=== PATIENT | female | born 1945 | race Two or more races ===

== ENCOUNTER 2022-05-19 12:55 | Inpatient (IN) | payer OTHER, MEDICAID ==
[2022-05-19] VITALS (28 sets, daily range): BP systolic -7–145; BP diastolic -17–86
[~2022-05-19] VITALS: Ht 154.9 cm; Wt 60.8 kg
[2022-05-19] MEDS ORDERED: NICARDIPINE 50 MG in SODIUM CHLORIDE 0.9% 230 ML IV SCH (13:45)
[2022-05-19] MEDS ORDERED: NICARDIPINE 40 MG/200 ML PREMIX 200 ML IV PRN (14:00)
[2022-05-19 14:11] LABS: CHLORIDE 104 mEq/L (98-107)
[2022-05-19 14:23] LABS: CREATINE KINASE 123 IU/L (26-192); ETHANOL BLOOD < 10 mg/dL
[2022-05-19 14:52] LABS: CLARITY URINE CLEAR (CLEAR); COLOR URINE YELLOW (YELLOW); KETONES URINE NEGATIVE (NEGATIVE); LEUKOCYTE ESTERASE URINE NEGATIVE (NEGATIVE); NITRITE URINE NEGATIVE (NEGATIVE); OCCULT BLOOD URINE 2+ (NEGATIVE); PH URINE 7.5 (4.5-8.0); PROTEIN URINE NEGATIVE (NEGATIVE); SPECIFIC GRAVITY URINE 1.021 (1.005-1.030); UROBILINOGEN URINE 0.2 E.U./dL (0.2-1.0)
[2022-05-19] MEDS ORDERED: SODIUM CHLORIDE 0.9% 1,000 ML IV ONE (15:00)
[2022-05-19 15:27] LABS: *AMPHETAMINES SCREEN URINE NEGATIVE (NEGATIVE); *BARBITURATES SCREEN URINE NEGATIVE (NEGATIVE); *BENZODIAZEPINES SCREEN URINE NEGATIVE (NEGATIVE); *COCAINE SCREEN URINE NEGATIVE (NEGATIVE); CANNABINOID URINE SCREEN NEGATIVE (NEGATIVE); OPIATES URINE SCREEN NEGATIVE (NEGATIVE)
[2022-05-19] MEDS ORDERED: NICARDIPINE 100 MG in SODIUM CHLORIDE 0.9% 60 ML IV PRN (15:30)
[2022-05-19] MEDS ORDERED: DEXT 5%/LACTATED RINGERS 1,000 ML IV SCH (15:30)
[2022-05-19 15:41] LABS: METHADONE URINE SCREEN NEGATIVE (NEGATIVE); PHENCYCLIDINE URINE SCREEN NEGATIVE (NEGATIVE)
[2022-05-19 15:42] LABS: HEMATOCRIT. 37.4 % (36.0-48.0); HEMOGLOBIN. 12.6 g/dL (12.0-16.0); MEAN CORPUSCULAR HEMOGLOBIN 32.7 pg (28.0-32.0); MEAN CORPUSCULAR VOLUME 97.2 fL (81.0-99.0); MEAN PLATELET VOLUME 7.6 fl (7.4-10.4); PLATELET 252 x1000/uL (130-400); RED BLOOD CELL COUNT 3.85 mill/uL (4.2-5.4); RED CELL DISTRIBUTION WIDTH 13.5 % (11.6-14.6)
[2022-05-19 15:54] LABS: INR 1.4; PROTHROMBIN TIME 14.3 sec (9.6-11.0)
[2022-05-19 16:48] LABS: PLATELET ESTIMATE NORMAL
[2022-05-19] MEDS ORDERED: LEVETIRACETAM 500MG PREMIX 100 ML IV SCH (17:00)
[2022-05-19] MEDS ORDERED: MORPHINE SULFATE 10 MG/ML CPJ IV NR ×2 (17:05→17:15)
[2022-05-19] MEDS ORDERED: IPRATROPIUM/ALBUTEROL 0.5-3(2.5)MG/3ML NEB NEB PRN (18:15)
[2022-05-19] MEDS ORDERED: NITROGLYCERIN 0.4MG TABLET SL SL PRN (18:15)
[2022-05-19] MEDS ORDERED: ONDANSETRON HCL 4MG/2ML INJ IV PRN (18:15)
[2022-05-19] MEDS ORDERED: ACETAMINOPHEN 650MG SUPP PR PRN (18:15)
[2022-05-19] MEDS: DEXT 5%/LACTATED RINGERS 1,000 ML IV SCH (18:23)
[2022-05-19] MEDS: DEXAMETHASONE 4MG/ML 1ML VIAL IV SCH (18:23)
[2022-05-19 22:16] LABS: T4 FREE 1.4 ng/dL (0.76-1.46)
[2022-05-19 22:32] LABS: FOLIC ACID (FOLATE) SERUM >20 ng/mL ng/mL (>5.38); VITAMIN B12 SERUM 378 pg/mL (211-911)
[2022-05-20] VITALS (97 sets, daily range): BP systolic -5–164; BP diastolic -9–86
[2022-05-20] MEDS: DEXAMETHASONE 4MG/ML 1ML VIAL IV SCH ×4 (00:24→18:55)
[2022-05-20 05:53] LABS: HEMATOCRIT. 39.8 % (36.0-48.0); HEMOGLOBIN. 13.6 g/dL (12.0-16.0); MEAN CORPUSCULAR HEMOGLOBIN 33.7 pg (28.0-32.0); MEAN CORPUSCULAR VOLUME 98.7 fL (81.0-99.0); MEAN PLATELET VOLUME 8.4 fl (7.4-10.4); PLATELET 246 x1000/uL (130-400); RED BLOOD CELL COUNT 4.03 mill/uL (4.2-5.4); RED CELL DISTRIBUTION WIDTH 13.9 % (11.6-14.6)
[2022-05-20 05:56] LABS: CHLORIDE 109 mEq/L (98-107)
[2022-05-20 06:05] LABS: PHOSPHORUS 1.5 mg/dL (2.5-4.9)
[2022-05-20] MEDS: DEXT 5%/LACTATED RINGERS 1,000 ML IV SCH ×2 (06:40→17:05)
[2022-05-20] MEDS: LEVETIRACETAM 500MG PREMIX 100 ML IV SCH ×2 (08:21→21:17)
[2022-05-20] MEDS: PANTOPRAZOLE SODIUM 40 MG/VIAL IV SCH (08:22)
[2022-05-20] MEDS: NICARDIPINE 100 MG in SODIUM CHLORIDE 0.9% 60 ML IV PRN (08:40)
[2022-05-20] MEDS ORDERED: MAGNESIUM 4 G PREMIX 100 ML IV NR (09:00)
[2022-05-20] MEDS: KCL 20MEQ/100ML PREMIX 100 ML IV SCH ×2 (11:00→13:04)
[2022-05-20 12:59] LABS: PLATELET ESTIMATE NORMAL
[2022-05-21] VITALS (73 sets, daily range): BP systolic -5–153; BP diastolic -5–96
[2022-05-21] MEDS: DEXT 5%/LACTATED RINGERS 1,000 ML IV SCH ×3 (00:16→17:22)
[2022-05-21 06:16] LABS: HEMATOCRIT. 35.7 % (36.0-48.0); MEAN CORPUSCULAR HEMOGLOBIN 33.3 pg (28.0-32.0); MEAN PLATELET VOLUME 8.3 fl (7.4-10.4); PLATELET 219 x1000/uL (130-400); RED BLOOD CELL COUNT 3.61 mill/uL (4.2-5.4)
[2022-05-21 06:47] LABS: CHLORIDE 113 mEq/L (98-107)
[2022-05-21 08:12] LABS: PLATELET ESTIMATE NORMAL
[2022-05-21] MEDS: PANTOPRAZOLE SODIUM 40 MG/VIAL IV SCH (08:29)
[2022-05-21] MEDS: LEVETIRACETAM 500MG PREMIX 100 ML IV SCH ×2 (08:29→21:30)
[2022-05-21] MEDS ORDERED: POTASSIUM PHOS,M-BASIC-D-BASIC 20 MMOL in DEXT 5% WATER 243.3333 ML IV NR (10:00)
[2022-05-22] VITALS (81 sets, daily range): BP systolic -3–163; BP diastolic -3–102
[2022-05-22] MEDS: DEXT 5%/LACTATED RINGERS 1,000 ML IV SCH ×3 (01:21→17:39)
[2022-05-22 05:47] LABS: HEMATOCRIT. 32.1 % (36.0-48.0); HEMOGLOBIN. 10.9 g/dL (12.0-16.0); MEAN CORPUSCULAR VOLUME 96.6 fL (81.0-99.0); MEAN PLATELET VOLUME 8.6 fl (7.4-10.4); PLATELET 205 x1000/uL (130-400); RED BLOOD CELL COUNT 3.32 mill/uL (4.2-5.4); RED CELL DISTRIBUTION WIDTH 14.3 % (11.6-14.6)
[2022-05-22 06:05] LABS: CHLORIDE 108 mEq/L (98-107)
[2022-05-22 06:16] LABS: PHOSPHORUS 2.8 mg/dL (2.5-4.9)
[2022-05-22 07:08] LABS: PLATELET ESTIMATE NORMAL
[2022-05-22] MEDS: LEVETIRACETAM 500MG PREMIX 100 ML IV SCH ×2 (08:00→20:52)
[2022-05-22] MEDS: PANTOPRAZOLE SODIUM 40 MG/VIAL IV SCH (08:00)
[2022-05-22] MEDS: NICARDIPINE 100 MG in SODIUM CHLORIDE 0.9% 60 ML IV PRN (17:46)
[2022-05-23] VITALS (92 sets, daily range): BP systolic -5–147; BP diastolic -5–80
[2022-05-23] MEDS: DEXT 5%/LACTATED RINGERS 1,000 ML IV SCH ×3 (02:16→17:59)
[2022-05-23 05:23] LABS: HEMATOCRIT. 38.1 % (36.0-48.0); HEMOGLOBIN. 13.1 g/dL (12.0-16.0); MEAN CORPUSCULAR HEMOGLOBIN 33.2 pg (28.0-32.0); MEAN CORPUSCULAR VOLUME 96.5 fL (81.0-99.0); MEAN PLATELET VOLUME 8.5 fl (7.4-10.4); PLATELET 245 x1000/uL (130-400); RED BLOOD CELL COUNT 3.95 mill/uL (4.2-5.4); RED CELL DISTRIBUTION WIDTH 14.1 % (11.6-14.6)
[2022-05-23 05:31] LABS: CHLORIDE 104 mEq/L (98-107)
[2022-05-23 05:39] LABS: PHOSPHORUS 2.5 mg/dL (2.5-4.9)
[2022-05-23] MEDS: LEVETIRACETAM 500MG PREMIX 100 ML IV SCH ×2 (08:42→21:18)
[2022-05-23] MEDS: PANTOPRAZOLE SODIUM 40 MG/VIAL IV SCH (08:42)
[2022-05-23] MEDS ORDERED: KCL 20MEQ/100ML PREMIX 100 ML IV NR (09:30)
[2022-05-23] MEDS ORDERED: MAGNESIUM 2 G PREMIX 50 ML IV NR (09:30)
[2022-05-23 10:29] LABS: PLATELET ESTIMATE NORMAL
[2022-05-24] VITALS (96 sets, daily range): BP systolic 0–151; BP diastolic 0–84
[2022-05-24] MEDS: DEXT 5%/LACTATED RINGERS 1,000 ML IV SCH ×3 (04:17→18:52)
[2022-05-24 05:30] LABS: BASOPHILS % 0.6 % (0.0-2.0); EOSINOPHILS % 0.4 % (0.0-5.0); HEMATOCRIT. 39.7 % (36.0-48.0); HEMOGLOBIN. 13.7 g/dL (12.0-16.0); LYMPHOCYTES % 11.6 % (20.0-50.0); MEAN CORPUSCULAR HEMOGLOBIN 33.8 pg (28.0-32.0); MEAN CORPUSCULAR VOLUME 97.6 fL (81.0-99.0); MEAN PLATELET VOLUME 8.7 fl (7.4-10.4); MONOCYTES % 8.9 % (2.0-8.0); NEUTROPHILS % 78.5 % (40.0-76.0); PLATELET 249 x1000/uL (130-400); RED BLOOD CELL COUNT 4.07 mill/uL (4.2-5.4); RED CELL DISTRIBUTION WIDTH 14.1 % (11.6-14.6)
[2022-05-24 05:32] LABS: CHLORIDE 107 mEq/L (98-107)
[2022-05-24] MEDS: AMLODIPINE 10MG TABLET PO SCH (09:05)
[2022-05-24] MEDS: LOSARTAN POTASSIUM 100 MG TABLET PO SCH (09:05)
[2022-05-24] MEDS: NICARDIPINE 100 MG in SODIUM CHLORIDE 0.9% 60 ML IV PRN (09:05)
[2022-05-24] MEDS: LEVETIRACETAM 500MG PREMIX 100 ML IV SCH ×2 (09:05→22:06)
[2022-05-24] MEDS: PANTOPRAZOLE SODIUM 40 MG/VIAL IV SCH (09:05)
[2022-05-25] VITALS (84 sets, daily range): BP systolic -2–149; BP diastolic -2–83
[2022-05-25] MEDS: DEXT 5%/LACTATED RINGERS 1,000 ML IV SCH ×2 (02:00→21:23)
[2022-05-25 05:44] LABS: BASOPHILS % 0.2 % (0.0-2.0); LYMPHOCYTES % 12.9 % (20.0-50.0); MEAN CORPUSCULAR HEMOGLOBIN 33.5 pg (28.0-32.0); MEAN CORPUSCULAR VOLUME 98.1 fL (81.0-99.0); MONOCYTES % 11.4 % (2.0-8.0); NEUTROPHILS % 73.5 % (40.0-76.0); PLATELET 236 x1000/uL (130-400); RED BLOOD CELL COUNT 3.87 mill/uL (4.2-5.4); RED CELL DISTRIBUTION WIDTH 13.9 % (11.6-14.6)
[2022-05-25 06:01] LABS: PHOSPHORUS 3.5 mg/dL (2.5-4.9)
[2022-05-25] MEDS: LEVETIRACETAM 500MG PREMIX 100 ML IV SCH ×2 (08:15→21:12)
[2022-05-25] MEDS: PANTOPRAZOLE SODIUM 40 MG/VIAL IV SCH (08:15)
[2022-05-25] MEDS: AMLODIPINE 10MG TABLET PO SCH (08:16)
[2022-05-25] MEDS: LOSARTAN POTASSIUM 100 MG TABLET PO SCH (08:16)
[2022-05-26] VITALS (64 sets, daily range): BP systolic -1–150; BP diastolic -4–80
[2022-05-26 04:12] LABS: BASOPHILS % 0.1 % (0.0-2.0); HEMATOCRIT. 36.1 % (36.0-48.0); HEMOGLOBIN. 12.4 g/dL (12.0-16.0); LYMPHOCYTES % 9.5 % (20.0-50.0); MEAN CORPUSCULAR HEMOGLOBIN 33.7 pg (28.0-32.0); MEAN CORPUSCULAR VOLUME 98.2 fL (81.0-99.0); MEAN PLATELET VOLUME 7.6 fl (7.4-10.4); MONOCYTES % 12.6 % (2.0-8.0); NEUTROPHILS % 74.8 % (40.0-76.0); PLATELET 214 x1000/uL (130-400); RED BLOOD CELL COUNT 3.68 mill/uL (4.2-5.4); RED CELL DISTRIBUTION WIDTH 13.8 % (11.6-14.6)
[2022-05-26 04:48] LABS: PHOSPHORUS 3.2 mg/dL (2.5-4.9)
[2022-05-26] MEDS: AMLODIPINE 10MG TABLET PO SCH (09:33)
[2022-05-26] MEDS: LOSARTAN POTASSIUM 100 MG TABLET PO SCH (09:33)
[2022-05-26] MEDS: DEXT 5%/LACTATED RINGERS 1,000 ML IV SCH (09:33)
[2022-05-26] MEDS: PANTOPRAZOLE SODIUM 40 MG/VIAL IV SCH (09:33)
[2022-05-26] MEDS: LEVETIRACETAM 500MG PREMIX 100 ML IV SCH ×2 (09:33→20:02)
[2022-05-26] MEDS: ACETAMINOPHEN 650MG SUPP PR PRN (17:25)
[2022-05-27] VITALS (50 sets, daily range): BP systolic -3–152; BP diastolic -4–113
[2022-05-27] MEDS: DEXT 5%/LACTATED RINGERS 1,000 ML IV SCH (05:04)
[2022-05-27] MEDS: AMLODIPINE 10MG TABLET PO SCH (09:42)
[2022-05-27] MEDS: LOSARTAN POTASSIUM 100 MG TABLET PO SCH (09:42)
[2022-05-27] MEDS: LEVETIRACETAM 500MG PREMIX 100 ML IV SCH ×2 (09:42→20:13)
[2022-05-27] MEDS: PANTOPRAZOLE SODIUM 40 MG/VIAL IV SCH (09:42)
[2022-05-27] MEDS: HYDROCHLOROTHIAZIDE 12.5MG CAPSULE PO SCH (11:30)
[2022-05-28] VITALS (82 sets, daily range): BP systolic -2–152; BP diastolic -4–94
[2022-05-28] MEDS: DEXT 5%/LACTATED RINGERS 1,000 ML IV SCH ×2 (01:50→16:12)
[2022-05-28 05:50] LABS: HEMATOCRIT 34.7 % (36.0-48.0); HEMOGLOBIN 11.7 g/dL (12.0-16.0); MEAN CORPUSCULAR HEMOGLOBIN 33.3 pg (28.0-32.0); MEAN CORPUSCULAR VOLUME 98.9 fL (81.0-99.0); RED BLOOD CELL COUNT 3.51 mill/uL (4.2-5.4); RED CELL DISTRIBUTION WIDTH 13.4 % (11.6-14.6)
[2022-05-28 06:18] LABS: CHLORIDE 102 mEq/L (98-107)
[2022-05-28 06:33] LABS: PHOSPHORUS 2.4 mg/dL (2.5-4.9)
[2022-05-28] MEDS: NICARDIPINE 100 MG in SODIUM CHLORIDE 0.9% 60 ML IV PRN (06:51)
[2022-05-28] MEDS: LOSARTAN POTASSIUM 100 MG TABLET PO SCH (09:20)
[2022-05-28] MEDS: LEVETIRACETAM 500MG PREMIX 100 ML IV SCH ×2 (09:20→21:07)
[2022-05-28] MEDS: HYDROCHLOROTHIAZIDE 12.5MG CAPSULE PO SCH (09:20)
[2022-05-28] MEDS: PANTOPRAZOLE SODIUM 40 MG/VIAL IV SCH (09:20)
[2022-05-28] MEDS: AMLODIPINE 10MG TABLET PO SCH (09:20)
[2022-05-28 11:37] LABS: PLATELET 203 x1000/uL (130-400)
[2022-05-28] MEDS ORDERED: MAGNESIUM 2 G PREMIX 50 ML IV NR (15:30)
[2022-05-28] MEDS ORDERED: SODIUM PHOS,M-BASIC-D-BASIC 20 MM in DEXT 5% WATER 243.3333 ML IV NR (16:00)
[2022-05-29] VITALS (98 sets, daily range): BP systolic -1–154; BP diastolic -1–105
[2022-05-29] MEDS: DEXT 5%/LACTATED RINGERS 1,000 ML IV SCH ×2 (01:39→22:30)
[2022-05-29 05:46] LABS: BASOPHILS % 0.2 % (0.0-2.0); EOSINOPHILS % 0.5 % (0.0-5.0); HEMOGLOBIN. 11.3 g/dL (12.0-16.0); MEAN CORPUSCULAR HEMOGLOBIN 33.4 pg (28.0-32.0); MEAN CORPUSCULAR VOLUME 97.6 fL (81.0-99.0); MEAN PLATELET VOLUME 7.8 fl (7.4-10.4); MONOCYTES % 10.7 % (2.0-8.0); NEUTROPHILS % 79.6 % (40.0-76.0); PLATELET 242 x1000/uL (130-400); RED BLOOD CELL COUNT 3.38 mill/uL (4.2-5.4); RED CELL DISTRIBUTION WIDTH 13.6 % (11.6-14.6)
[2022-05-29 06:27] LABS: PHOSPHORUS 3.8 mg/dL (2.5-4.9)
[2022-05-29] MEDS: HYDROCHLOROTHIAZIDE 12.5MG CAPSULE PO SCH (08:48)
[2022-05-29] MEDS: LOSARTAN POTASSIUM 100 MG TABLET PO SCH (08:48)
[2022-05-29] MEDS: AMLODIPINE 10MG TABLET PO SCH (08:48)
[2022-05-29] MEDS: LEVETIRACETAM 500MG PREMIX 100 ML IV SCH ×2 (08:48→20:39)
[2022-05-29] MEDS: PANTOPRAZOLE SODIUM 40 MG/VIAL IV SCH (08:53)
[2022-05-29] MEDS ORDERED: KCL 20MEQ/100ML PREMIX 100 ML IV NR (11:00)
[2022-05-29] MEDS ORDERED: HYDRALAZINE 20MG/ML VIAL IV PRN (11:45)
[2022-05-29] MEDS: ACETAMINOPHEN 325MG TABLET PO PRN ×2 (14:01→14:55)
[2022-05-30] VITALS (55 sets, daily range): BP systolic 125–158; BP diastolic 57–105
[2022-05-30 05:36] LABS: HEMATOCRIT. 31.9 % (36.0-48.0); MEAN CORPUSCULAR HEMOGLOBIN 33.7 pg (28.0-32.0); MEAN CORPUSCULAR VOLUME 97.9 fL (81.0-99.0); MEAN PLATELET VOLUME 7.6 fl (7.4-10.4); PLATELET 248 x1000/uL (130-400); RED BLOOD CELL COUNT 3.26 mill/uL (4.2-5.4); RED CELL DISTRIBUTION WIDTH 13.5 % (11.6-14.6)
[2022-05-30 05:40] LABS: CHLORIDE 103 mEq/L (98-107)
[2022-05-30 05:48] LABS: PHOSPHORUS 2.6 mg/dL (2.5-4.9)
[2022-05-30 09:14] LABS: PLATELET ESTIMATE NORMAL
[2022-05-30] MEDS: LOSARTAN POTASSIUM 100 MG TABLET PO SCH (09:54)
[2022-05-30] MEDS: HYDROCHLOROTHIAZIDE 12.5MG CAPSULE PO SCH (09:54)
[2022-05-30] MEDS: LEVETIRACETAM 500MG PREMIX 100 ML IV SCH ×2 (09:54→20:10)
[2022-05-30] MEDS: PANTOPRAZOLE SODIUM 40 MG/VIAL IV SCH (09:54)
[2022-05-30] MEDS: AMLODIPINE 10MG TABLET PO SCH (09:55)
[2022-05-30] MEDS: ACETAMINOPHEN 650MG SUPP PR PRN ×2 (09:55→18:24)
[2022-05-30 11:17] LABS: CLARITY URINE CLOUDY (CLEAR); COLOR URINE YELLOW (YELLOW); KETONES URINE NEGATIVE (NEGATIVE); LEUKOCYTE ESTERASE URINE 3+ (NEGATIVE); NITRITE URINE NEGATIVE (NEGATIVE); OCCULT BLOOD URINE TRACE (NEGATIVE); PH URINE 7.5 (4.5-8.0); PROTEIN URINE TRACE (NEGATIVE); SPECIFIC GRAVITY URINE 1.011 (1.005-1.030)
[2022-05-30] MEDS: CEFTRIAXONE 1,000 MG in DEXTROSE 5% WATER 50 ML IV SCH (11:30)
[2022-05-30] MEDS: DEXT 5%/LACTATED RINGERS 1,000 ML IV SCH (20:10)
[2022-05-31] VITALS: BP 159/76
[2022-05-31 04:00] VITALS: BP 164/74
[2022-05-31 08:00] VITALS: BP 138/58
[2022-05-31 09:02] LABS: HEMATOCRIT. 35.1 % (36.0-48.0); MEAN CORPUSCULAR HEMOGLOBIN 33.9 pg (28.0-32.0); MEAN CORPUSCULAR VOLUME 98.7 fL (81.0-99.0); MEAN PLATELET VOLUME 8.6 fl (7.4-10.4); RED BLOOD CELL COUNT 3.56 mill/uL (4.2-5.4); RED CELL DISTRIBUTION WIDTH 13.2 % (11.6-14.6)
[2022-05-31 09:13] LABS: PLATELET 282 x1000/uL (130-400)
[2022-05-31] MEDS: LEVETIRACETAM 500MG PREMIX 100 ML IV SCH ×2 (09:30→20:09)
[2022-05-31 09:32] LABS: CHLORIDE 103 mEq/L (98-107); PHOSPHORUS 2.3 mg/dL (2.5-4.9)
[2022-05-31] MEDS: CEFTRIAXONE 1,000 MG in DEXTROSE 5% WATER 50 ML IV SCH (09:33)
[2022-05-31] MEDS: HYDROCHLOROTHIAZIDE 12.5MG CAPSULE PO SCH (09:34)
[2022-05-31] MEDS: AMLODIPINE 10MG TABLET PO SCH (09:34)
[2022-05-31] MEDS: PANTOPRAZOLE SODIUM 40 MG/VIAL IV SCH (09:34)
[2022-05-31] MEDS: LOSARTAN POTASSIUM 100 MG TABLET PO SCH (09:34)
[2022-05-31 12:00] VITALS: BP 134/62
[2022-05-31 16:00] VITALS: BP 122/63
[2022-05-31 20:00] VITALS: BP 143/72
[2022-05-31] MEDS: ACETAMINOPHEN 325MG TABLET PO PRN (21:01)
[2022-06-01] VITALS: BP 128/79
[2022-06-01 00:31] LABS: PLATELET ESTIMATE NORMAL
[2022-06-01 00:50] VITALS: BP 128/79
[2022-06-01 04:00] VITALS: BP 115/79
== END 2022-06-01 06:13 | disposition short-term general hospital (02) | DRG 23 ==
LOC: EDBD 12:55 → ER 12:55 → MICUSO 14:42 → EDBEDREQTM 14:53 → EDBEDREQ 14:53 → EDBEDREQSVC 14:53 → ENRESERV 16:37 → 7WST 05-30 19:15
PROVIDERS: ADMIT Internal Medicine; ATTEND Internal Medicine
PROC: 009630Z Drainage of Cerebral Ventricle with Drainage Device, Percutaneous Approach (ICD-10-PCS; principal; 2022-05-19)
DX: I61.5 Nontraumatic intracerebral hemorrhage, intraventricular (principal); E43 Unspecified severe protein-calorie malnutrition; I21.4 Non-ST elevation (NSTEMI) myocardial infarction; G92.8 Other toxic encephalopathy; G91.9 Hydrocephalus, unspecified; E87.1 Hypo-osmolality and hyponatremia; I16.1 Hypertensive emergency; J98.11 Atelectasis; E87.20 Acidosis, unspecified; N39.0 Urinary tract infection, site not specified; E83.51 Hypocalcemia; H91.90 Unspecified hearing loss, unspecified ear; E87.6 Hypokalemia; E83.42 Hypomagnesemia; Z20.822 Contact with and (suspected) exposure to COVID-19; I10 Essential (primary) hypertension; R47.1 Dysarthria and anarthria; I61.4 Nontraumatic intracerebral hemorrhage in cerebellum; R73.9 Hyperglycemia, unspecified; R40.20 Unspecified coma; I67.82 Cerebral ischemia; Z86.73 Personal history of transient ischemic attack (TIA), and cerebral infarction without residual deficits; Z68.25 Body mass index [BMI] 25.0-25.9, adult
CPT/HCPCS: 36415; 70496; 70498; 71045; 80048; 80053; 80061; 80305; 80320; 81003; 82140; 82550; 82607; 82746; 82962; 83036; 83540; 83550; 83605; 83735; 84100; 84134; 84439; 84443; 84484; 85025; 85027; 87077; 87186; 87426; 92610; 93306; 93970; 97162; 97166; 97530; 99291; C1893; C9113; J0360; J0696; J1100; J1953; J2270; J2405; J3475; J3480; J3490; J7050; J7060; J7121; A4315; G0480

== ENCOUNTER 2023-08-03 15:17 | Emergency (ER) | payer OTHER, MEDICAID ==
[~2023-08-03] VITALS: Ht 157.5 cm; Wt 41.0 kg
[2023-08-03 15:26] VITALS: BP 143/65; PULSE 74; RESP 16; TEMP 99.6; O2SAT 97
== END 2023-08-03 15:30 | disposition left against medical advice (07) ==
LOC: ER 15:17
DX: R68.89 Other general symptoms and signs (principal); Z53.21 Procedure and treatment not carried out due to patient leaving prior to being seen by health care provider
CPT/HCPCS: 99281; 99283